=== PATIENT | male | born 2000 | race Caucasian/White ===

== ENCOUNTER 2024-08-18 10:04 | Emergency (ER) | payer OTHER, SELFPAY ==
--- NOTE | ~2024-08-18 | XR_ITS ---
EXAMINATION: XR chest 2V 08/18/2024 10:46 INDICATION: Cough and shortness of breath PROCEDURE: 2 view chest COMPARISON: No prior studies for comparison. FINDINGS: The lungs are clear. The cardiomediastinal silhouette is within normal limits. There are no pleural effusions. There is no pneumothorax suspected. IMPRESSION: 1: NO ACUTE CARDIOPULMONARY DISEASE. Reviewed, dictated and finalized at location B.
--- NOTE | 2024-08-18 10:18 | ED.URI ---
HPI - URI/Sore Throat General Chief Complaint: Upper Respiratory Infection Stated Complaint: throat pain Time Seen by Provider: 08/18/24 10:15 Source: patient Mode of arrival: ambulatory Limitations: no limitations History of Present Illness HPI Narrative: Louis is a 24-year-old male patient presenting to the clinic today with complaints of sore throat, cough, nasal congestion, and shortness of breath that started yesterday. He reports his throat hurts to cough or swallow. Has had exposure to walking pneumonia. Denies any known fever, chills, body aches, nausea, vomiting, or diarrhea. MD elicited complaint: cough, sore throat, nasal congestion and other (Shortness breath) Related Data Home Medications Medication Instructions Recorded Confirmed No Home Medications 08/18/24 08/18/24 Allergies Allergy/AdvReac Type Severity Reaction Status Date / Time No Known Allergies Allergy Verified 08/18/24 10:25 Review of Systems Review of Systems: Pertinent positives per HPI. Patient denies any fever, chills, rash, headache, visual changes, dizziness, shortness of breath, chest pain, palpitations, nausea, vomiting, diarrhea, constipation, abdominal pain, or any urinary issues. PMFSH Comments At the time of my signature, I reviewed and agree with the nursing past medical, surgical, social, and family history. There is no relevant family history pertinent to the patient complaint. Exam Narrative: General: Well-developed, well nourished, in no apparent distress Head: Normocephalic, atraumatic Eyes: Pupils equally round and reactive to light bilaterally, EOM intact, sclera and conjunctive clear, no discharge, lids normal Ears: TMs intact and clear, ear canals clear, no drainage, grossly hearing normal. Nose: Nares patent, clear nasal discharge, no inflammation, no sinus tenderness. Mouth: Oral pharynx red with bilateral tonsillar enlargement without lesions or masses, good dentition, MMM. Neck: Supple, trachea midline, no enlargement of anterior or posterior cervical nodes, no thyroid masses or goiter palpable. Cardio: Regular rate and rhythm, s1 and s2 normal, no murmur appreciated. Resp: Clear to auscultation bilaterally, no rhonchi, rales, wheezing or rubs Course Course Emergency Course: Portions of this record may have been created with voice recognition software. Level of Care: Express Care Visit Vital Signs Vital signs: Vital Signs Temperature 36.9 C 08/18/24 10:25 Pulse Rate 96 08/18/24 10:25 Respiratory Rate 16 08/18/24 10:25 Blood Pressure 115/79 08/18/24 10:25 Pulse Oximetry 100 08/18/24 10:25 Oxygen Delivery Room Air 08/18/24 10:25 Temperature 36.9 C 08/18/24 10:25 Pulse Rate 96 08/18/24 10:25 Respiratory Rate 16 08/18/24 10:25 Blood Pressure 115/79 08/18/24 10:25 Pulse Oximetry 100 08/18/24 10:25 Oxygen Delivery Room Air 08/18/24 10:25 Vital signs reviewed MDM - URI/Sore Throat MDM Narrative Medical decision making narrative: At the time of visit patient is resting comfortably on the exam table. Patient appears to be nontoxic. Labs: COVID, influenza, and strep test were all negative in the clinic today. We will send strep for culture Diagnostics: Chest x-rays negative for any sign of pneumonia. Plan: I suspect patient has URI/pharyngitis. Supportive measures were discussed with the patient and they voiced understanding discharge instructions and agrees to treatment plan. Return precautions reviewed Differential Diagnosis Differential diagnosis: Likely upper respiratory infection, otitis media, sinusitis, viral infection, bronchitis, influenza, pharyngitis and other (COVID) Lab Data Labs: Lab Results 08/18/24 Range/Units 10:30 POC Grp A Strep Screen Negative (Negative) Imaging Data Radiologist's impression: ITS Impressions Chest X-Ray 08/18/24 10:48 IMPRESSION: 1: NO ACUTE CARDIOPULMONARY DISEASE. Discharge Plan Discharge Clinical Impression: Upper respiratory infection Qualifiers: URI type: unspecified URI Qualified Code(s): J06.9 - Acute upper respiratory infection, unspecified Pharyngitis Qualifiers: Pharyngitis/tonsillitis etiology: unspecified etiology Qualified Code(s): J02.9 - Acute pharyngitis, unspecified Patient Disposition: Home, Self-Care Condition: Stable Instructions: Antibiotic Form, Pharyngitis (ED), Upper Respiratory Infection (ED) Additional Instructions: Strep, COVID, and influenza testing were all negative in the clinic today. We will send strep for culture if this comes back positive we will contact you in place you on antibiotics at that time May take DayQuil/NyQuil for cold/flu symptoms Increase fluids and stay well hydrated Tylenol/motrin for pain/fever Flonase and OTC antihistamines as directed Vicks vapor rub to open sinuses Sinus rinses for congestion Cepacol spray, cough drops, throat lozenges, warm tea with honey/lemon, gargle salt water to soothe throat BRAT diet for diarrhea Clear liquids x 24 hours then advance as tolerated for nausea/vomiting Go to the ED if you develop a worsening in your condition- high fever not controlled by Tylenol or Motrin, dehydration, weakness, lethargy, shortness of breath, or chest pain. Follow up with your PCP in 3-5 days if symptoms persist. Prescriptions: No Action No Home Medications Follow-up/Referrals: Uday,MD Soraida [Primary Care Provider] - Stand Alone Forms: Work/School Release IP Time of Disposition: 10:59 Quality NIHSS Nursing Documentation ED NIHSS nursing documentation: reviewed/agree
[2024-08-18 10:25] VITALS: BP 115/79; PULSE 96; RESP 16; TEMP 36.9; O2SAT 100
[2024-08-18 10:31] LABS: EDSTREPNEGPOS1 Negative (Negative)
[2024-08-18 11:01] LABS: EDCOVIDSCREEN Negative (Negative); EDINFLUASCREEN Negative (Negative); EDINFLUBSCREEN Negative (Negative)
== END 2024-08-18 11:05 | disposition home or self-care (01) ==
PROVIDERS: Emergency Provider Nurse Practitioner Family; PCP Family Medicine
DX: J06.9 Acute upper respiratory infection, unspecified (principal); J02.9 Acute pharyngitis, unspecified; Z20.822 Contact with and (suspected) exposure to COVID-19
CPT/HCPCS: 71046; 87081; 87426; 87804; 87880; 99203; G0463